=== PATIENT | female | born 1990 | race Caucasian/White ===

== ENCOUNTER 2016-09-22 20:40 | Emergency (ER) | payer OTHER ==
[2016-09-22 21:03] VITALS: BP 134/68; PULSE 86; TEMP 98.3; BMI 34.7
[2016-09-22] MEDS ORDERED: IBUPROFEN 600 MG TABLET (FP) PO ONE ×2 (21:34→21:51)
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
== END 2016-09-22 22:13 | disposition home or self-care (01) ==
LOC: FER 20:40
DX: S39.012A Strain of muscle, fascia and tendon of lower back, initial encounter (principal); V43.62XA Car passenger injured in collision with other type car in traffic accident, initial encounter; Y93.89 Activity, other specified; Y92.410 Unspecified street and highway as the place of occurrence of the external cause
CPT/HCPCS: 99281-25